=== PATIENT | female | born 1955 | race Caucasian/White ===

== ENCOUNTER 2021-12-14 17:10 | Emergency (ER) | payer MEDICARE, BC, SELFPAY ==
[2021-12-14] VITALS (12 sets, daily range): BP systolic 93–118; BP diastolic 42–53; PULSE 35–37; RESP 18; TEMP 36.1; O2SAT 94–96; BMI 26.4
--- NOTE | 2021-12-14 17:41 | ED.GENADULT ---
HPI - General Adult General Time Seen by Provider: 17:41 Date Seen: 12/14/21 Chief complaint: Arrhythmia/Palpitations Stated complaint: low heart rate Time Seen by Provider: 12/14/21 17:28 Source: patient and family Mode of arrival: ambulatory History of Present Illness HPI narrative: Roseann is a 66 year old female with no past medical history presents to the emergency department with with a low heart rate. Patient states over the last 3 weeks she has had intermittent lightheadedness, she had 1 episode of syncope about 3 weeks ago when she was walking his prior going to downstairs. She denies any chest pain or shortness of breath, she is not currently on any beta-blockers. She was going to have her colonoscopy yesterday but her heart rate was low so they discontinued, they have her follow up with Dr. Ugarte, he did some blood work, EKGs and set up an echocardiogram in the [place]. Patient was told by primary care provider to come to the emergency department. Patient is asymptomatic at this time. Related Data Home Medications Medication Instructions Recorded Confirmed liraglutide 0.6 mg/0.1 mL (18 mg/3 mg subcut 12/14/21 mL) subcutaneous pen injector (Victoza 2-Trent) lisinopril 5 mg tablet mg 12/14/21 lovastatin 40 mg tablet mg 12/14/21 metformin 1,000 mg tablet mg 12/14/21 Allergies Allergy/AdvReac Type Severity Reaction Status Date / Time No Known Drug Allergies Allergy Verified 12/14/21 17:18 Review of Systems Status of ROS: Reports: 10 or more systems reviewed and unremarkable except as noted in History and below PFSH PFS Social History Smoking Status: Never smoker Do you use any of these nicotine containing products: None Second hand tobacco smoke exposure: No How often do you have a drink containing alcohol: never How often do you have six or more drinks on one occasion: Never AUDIT-C Alcohol total score: 0 Non-prescribed substance use: denies use service: No Exam Const: Vital Signs, click to edit/add: Vital Signs - 24 hr 12/14/21 17:14 12/14/21 18:10 12/14/21 18:12 Temperature 97.0 F L Pulse Rate 36 L 36 L Pulse Rate [Right Pulse Oximeter] 37 L Respiratory Rate 18 Blood Pressure 115/53 L Blood Pressure [Ri ght Upper Arm] 96/49 L Pulse Oximetry 96 95 94 Oxygen Delivery Me thod Room Air 12/14/21 18:31 Temperature Pulse Rate 36 L Pulse Rate [Right Pulse Oximeter] Respiratory Rate Blood Pressure 109/50 L Blood Pressure [Ri ght Upper Arm] Pulse Oximetry 95 Oxygen Delivery Me thod Common normals: no apparent distress HENMT: Common normals: normocephalic Head and scalp: normocephalic Eye: Common normals: PERRL and EOMs intact bilaterally Pupil: PERRL Neck & C-Spine: Common normals: full ROM, no lymphadenopathy, supple and no JVD Lymph: Lymphatic: no lymphadenopathy noted Resp: Common normals: clear to auscultation bilaterally Auscultation: clear to auscultation bilaterally Cardio: Common normals: no JVD Other: Marked sinus bradycardia GI: Common normals: soft to palpation and non-tender Palpation: soft Back & Pelvis: Common normals: thoracic and lumbar spine normal to inspection and no thoracic nor lumbar tenderness Extremity: Common normals: normal to inspection, full ROM and no pedal edema Neuro: Common normals: CN's II-XII intact bilaterally Course Course Hospital Course: 5:45 PM: AIDET performed. Work up will include, EKG, IV peripheral, CBC, troponin I, CMP, TSH and XR chest portable. ECG shows a third degree AV block. BPM 36. LBBB present. Reevaluation(s) Reevaluation #1: Spoke with Cardiology [facility], they were unable to take patient at this time. Will try [facility]. Time: 18:52 Reevaluation #2: Spoke with Dr. Kaplan Hospitalist from [facility], she accepts care of the patient to a Medical bed, patient to go via ground ambulance. Vital Signs Vital signs: Initial Vital Signs Temperature 97.0 F L 12/14/21 17:14 Temperature Source Temporal Artery Scan 12/14/21 17:14 Pulse Rate 37 L 12/14/21 17:14 Pulse Rhythm 12/14/21 17:14 Respiratory Rate 18 12/14/21 17:14 Blood Pressure 96/49 L 12/14/21 17:14 Blood Pressure Mean 64 12/14/21 17:14 Pulse Oximetry 96 09/01/22 17:14 Oxygen Delivery Method 12/14/21 17:14 Vital Signs Temperature 97.0 F L 12/14/21 17:14 Pulse Rate 37 L 12/14/21 17:14 Respiratory Rate 18 12/14/21 17:14 Blood Pressure 96/49 L 12/14/21 17:14 Pulse Oximetry 96 12/14/21 17:14 Oxygen Delivery Method 12/14/21 17:14 Temperature 97.0 F L 12/14/21 17:14 Pulse Rate 36 L 12/14/21 20:32 Respiratory Rate 18 12/14/21 17:14 Blood Pressure 116/46 L 12/14/21 20:32 Pulse Oximetry 95 12/14/21 20:32 Oxygen Delivery Method 12/14/21 17:14 Medical Decision Making Lab Data Labs: Lab Results 12/14/21 12/14/21 12/14/21 Range/Units 18:00 18:00 18:00 WBC 5.64 (4.50-11.00) K/uL RBC 2.80 L (4.00-5.20) m/uL Hgb 8.3 L (12.0-16.0) gm/dL Hct 25.9 L (33.0-51.0) % MCV 93 (80-100) fL MCH 30 (26-34) pg MCHC 32 (32-36) gm/dL RDW Coeff of Maikel 16.4 H (11.5-15.5) % Plt Count 223 (140-440) K/uL Neut % (Auto) 41.6 L (42.0-72.0) % Lymph % (Auto) 46.8 H (20-44) % [place] % (Auto) 9.8 (0.0-11.0) % Eos % (Auto) 1.2 (0.0-7.0) % Baso % (Auto) 0.2 (0.0-3.0) % Neut # (Auto) 2.30 (1.7-7.0) K/uL Lymph # (Auto) 2.60 (0.90-2.90) K/uL [place] # (Auto) 0.60 (0.00-0.90) K/UL Eos # (Auto) 0.07 (0.00-0.50) K/uL Baso # (Auto) 0.01 (0.00-0.30) K/uL Abs Immat Gran (auto) 0.02 (0.00-0.30) K/uL Sodium 135 (135-149) mmol/L Potassium 4.1 (3.6-5.1) mmol/L Chloride 104 (96-114) mmol/L Carbon Dioxide 18 L (20-32) mmol/L BUN 13 (7-30) mg/dL Creatinine 1.7 H (0.5-1.5) mg/dL Estimated Creat Clear 27.35 Estimated GFR 32 ml/min Glucose 199 H (60-115) mg/dL Calcium 9.0 (8.4-10.6) mg/dL Magnesium 1.3 L (1.5-2.6) mg/dL Total Bilirubin 0.2 (0.1-1.5) mg/dL AST 31 (12-35) U/L ALT 20 (4-35) U/L Alkaline Phosphatase 72 (40-150) U/L Troponin I < 0.01 L (0.01-0.04) ng/mL NT-Pro-B Natriuret Pep 1510 H (0-125) PG/mL Total Protein 8.1 (6.0-8.3) g/dL Albumin 3.8 (3.3-5.0) g/dL TSH 3.350 (0.270-4.20) uIU/mL SARS-CoV-2 (PCR) (Negative) 12/14/21 Range/Units 18:52 WBC (4.50-11.00) K/uL RBC (4.00-5.20) m/uL Hgb (12.0-16.0) gm/dL Hct (33.0-51.0) % MCV (80-100) fL MCH (26-34) pg MCHC (32-36) gm/dL RDW Coeff of Maikel (11.5-15.5) % Plt Count (140-440) K/uL Neut % (Auto) (42.0-72.0) % Lymph % (Auto) (20-44) % [place] % (Auto) (0.0-11.0) % Eos % (Auto) (0.0-7.0) % Baso % (Auto) (0.0-3.0) % Neut # (Auto) (1.7-7.0) K/uL Lymph # (Auto) (0.90-2.90) K/uL [place] # (Auto) (0.00-0.90) K/UL Eos # (Auto) (0.00-0.50) K/uL Baso # (Auto) (0.00-0.30) K/uL Abs Immat Gran (auto) (0.00-0.30) K/uL Sodium (135-149) mmol/L Potassium (3.6-5.1) mmol/L Chloride (96-114) mmol/L Carbon Dioxide (20-32) mmol/L BUN (7-30) mg/dL Creatinine (0.5-1.5) mg/dL Estimated Creat Clear Estimated GFR ml/min Glucose (60-115) mg/dL Calcium (8.4-10.6) mg/dL Magnesium (1.5-2.6) mg/dL Total Bilirubin (0.1-1.5) mg/dL AST (12-35) U/L ALT (4-35) U/L Alkaline Phosphatase (40-150) U/L Troponin I (0.01-0.04) ng/mL NT-Pro-B Natriuret Pep (0-125) PG/mL Total Protein (6.0-8.3) g/dL Albumin (3.3-5.0) g/dL TSH (0.270-4.20) uIU/mL SARS-CoV-2 (PCR) Negative SARS-CoV-2 (Negative) Discharge Plan Discharge Clinical Impression: Heart block AV third degree Patient Disposition: [facility] Discharge Location: [facility]
--- NOTE | 2021-12-14 18:24 | ED.NURSE ---
Call to [facility], currently no beds within [facility] system, but they will still consult. Call back expected within one hour.
[2021-12-14 18:31] LABS: Basophils Absolute Auto 0.01 K/uL (0.00-0.30); Basophils Percent Auto 0.2 % (0.0-3.0); Eosinophils Absolute Auto 0.07 K/uL (0.00-0.50); Eosinophils Percent Auto 1.2 % (0.0-7.0); Hematocrit 25.9 % (33.0-51.0); Hemoglobin* 8.3 gm/dL (12.0-16.0); Immature Granulocytes Abs Auto 0.02 K/uL (0.00-0.30); Lymphocytes Percent Auto 46.8 % (20-44); Mean Corpuscular HGB Conc 32 gm/dL (32-36); Mean Corpuscular Hemoglobin 30 pg (26-34); Mean Corpuscular Volume 93 fL (80-100); Monocytes Percent Auto 9.8 % (0.0-11.0); Neutrophils Percent Auto 41.6 % (42.0-72.0); Platelet Count* 223 K/uL (140-440); RDW Coefficient of Variation % 16.4 % (11.5-15.5); White Blood Count* 5.64 K/uL (4.50-11.00)
[2021-12-14 18:32] LABS: Slide Review Reflex No
[2021-12-14 18:33] LABS: Albumin* 3.8 g/dL (3.3-5.0); Chloride* 104 mmol/L (96-114)
[2021-12-14 18:34] LABS: Potassium* 4.1 mmol/L (3.6-5.1); Sodium* 135 mmol/L (135-149)
[2021-12-14 18:36] LABS: Alanine Aminotransferase* 20 U/L (4-35); Alkaline Phosphatase* 72 U/L (40-150); Aspartate Amino Transferase* 31 U/L (12-35); Bilirubin Total* 0.2 mg/dL (0.1-1.5); Blood Urea Nitrogen* 13 mg/dL (7-30); Carbon Dioxide* 18 mmol/L (20-32); Creatinine* 1.7 mg/dL (0.5-1.5); Est. Creatinine Clearance* 27.35; Estimated Glomerular Filt Rate 32 ml/min; Glucose* 199 mg/dL (60-115); Total Protein* 8.1 g/dL (6.0-8.3)
[2021-12-14 18:37] LABS: Magnesium* 1.3 mg/dL (1.5-2.6)
[2021-12-14 18:44] LABS: NT Pro B Type NatriureticPept* 1510 PG/mL (0-125)
[2021-12-14 18:59] LABS: Troponin I* < 0.01 ng/mL (0.01-0.04)
--- NOTE | 2021-12-14 19:39 | ED.NURSE ---
Call to dispatch requesting aircare.
--- NOTE | 2021-12-14 20:27 | ED.NURSE ---
Report to ADELINA Doan at [facility].
--- NOTE | 2021-12-14 20:36 | ED.NURSE ---
Report to [facility]. Pt transfers to [facility] in stable condition. IV SL. No c/o pain.
[2021-12-14 23:19] LABS: SARS PCR* Negative SARS-CoV-2 (Negative)
== END 2021-12-14 20:40 | disposition short-term general hospital (02) ==
PROVIDERS: Emergency Provider Student in an Organized Health Care Education/Training Program; PCP Family Medicine
DX: I44.2 Atrioventricular block, complete (principal)
CPT/HCPCS: 36415; 80053; 83735; 83880; 84443; 84484; 85025; 87635; 93005; 99282; 99283; 99284

== ENCOUNTER 2022-09-24 11:06 | Outpatient (CLI) | payer MEDICARE, BC, SELFPAY ==
--- NOTE | 2022-09-24 12:13 | W.ANESCHARGE ---
Anesthesia Charges Start Date/Time Anesthesia Start Date: 09/24/22 Anesthesia Start Time: 11:40 Stop Date/Time Anesthesia Stop Date: 09/24/22 Anesthesia Stop Time: 12:10
--- NOTE | 2022-09-24 12:19 | W.ANESCHARGE ---
Anesthesia Charges Start Date/Time Anesthesia Start Date: 09/24/22 Anesthesia Start Time: 11:40 Stop Date/Time Anesthesia Stop Date: 09/24/22 Anesthesia Stop Time: 12:10
== END 2022-09-24 11:07 | disposition home or self-care (01) ==
PROVIDERS: PCP Family Medicine; Visit Provider Internal Medicine Gastroenterology
DX: K63.5 Polyp of colon (principal); K57.30 Diverticulosis of large intestine without perforation or abscess without bleeding; Z86.010 Personal history of colon polyps
CPT/HCPCS: 45385; 811; 812; 88305; J2704